=== PATIENT | female | born 1985 | race American Indian/Alaskan Native ===

== ENCOUNTER 2017-09-30 06:22 | Outpatient (CLI) | payer MEDICAID ==
[2017-09-30] MEDS ORDERED: LACTATED RINGERS 500 ML IV ONE (06:31)
[2017-09-30 06:37] VITALS: BP 100/61
[2017-09-30] MEDS ORDERED: LACTATED RINGERS 0 ML ONE (06:50)
[2017-09-30 07:10] LABS: Bacteria,Urine 1+ /HPF (Negative); Bilirubin,Urine NEG (Negative); Blood,Urine NEG (Negative); Color,Urine Yellow (Yellow); Mucus,Urine FEW /HPF; Protein,Urine <15 mg/dL mg/dL (Negative); Urobilinogen,Urine < 2.0 mg/dL (<2.0)
[2017-09-30] MEDS ORDERED: LACTATED RINGERS 1,000 ML ONE (07:17)
[2017-09-30] MEDS ORDERED: BRETHINE SUB-Q ONE (08:40)
[2017-09-30] MEDS ORDERED: VISTARIL PO ONE (10:00)
== END 2017-09-30 10:50 | disposition home or self-care (01) ==
LOC: TRG 06:22
PROVIDERS: ATTEND Obstetrics & Gynecology
DX: O62.9 Abnormality of forces of labor, unspecified (principal); Z3A.29 29 weeks gestation of pregnancy
CPT/HCPCS: 59025; 81001; 96360; 96372; J3105; J7120; Q0177